=== PATIENT | female | born 1975 | race African-American/Black ===

== ENCOUNTER 2018-01-21 10:36 | Emergency (ER) | payer SELFPAY ==
[~2018-01-21] VITALS: Ht 162.6 cm; Wt 108.9 kg
[2018-01-21 10:48] VITALS: BP 164/85
[2018-01-21] MEDS ORDERED: IBUPROFEN 600 MG TABLET. PO ONE (11:15)
[2018-01-21] MEDS ORDERED: ORPHENADRINE CITRATE 60 MG/2 ML VIAL. IM ONE (11:15)
[2018-01-21] MEDS ORDERED: ORPH100T PO (11:21)
--- NOTE | 2018-01-21 11:21 | PHYS DOC ---
Past Medical History Past Medical History: Anxiety, Asthma, Bipolar, CHF, Depression, Diabetes-Type II, GERD, High Cholesterol, Hypertension, Schizophrenia Additional Past Medical Histor: SLEEP APNEA Past Surgical History: Cholecystectomy, , Hysterectomy Additional Past Surgical Histo: HERNIA REPAIR Alcohol Use: None Drug Use: None Adult General Chief Complaint Chief Complaint: BACK PAIN OR INJURY HPI HPI 42-year-old female presents to ER via POV with complaints of slipping and falling on Thursday and having lower back pain since the fall. Patient denies striking her head or having any head or neck pain. Patient states she took Tylenol and ibuprofen last night but has not taken any medications today. Pt denies any incontinence of bowel or bladder, swelling in extremities, or difficulty walking. She denies any numbness or tingling. Review of Systems Review of Systems Constitutional: Denies fever or chills [] Eyes: Denies change in visual acuity, redness, or eye pain [] HENT: Denies nasal congestion or sore throat [] Respiratory: Denies cough or shortness of breath [] Cardiovascular: No additional information not addressed in HPI [] GI: Denies abdominal pain, nausea, vomiting, bloody stools or diarrhea [] : Denies dysuria or hematuria [] Musculoskeletal: Denies back pain or joint pain [] Integument: Denies rash or skin lesions [] Neurologic: Denies headache, focal weakness or sensory changes [] Endocrine: Denies polyuria or polydipsia [] All other systems were reviewed and found to be within normal limits, except as documented in this note. Current Medications Current Medications Current Medications Medications (Trade) Dose Ordered Sig/[facility] Start Time Stop Time Status Last Admin Dose Admin Ibuprofen (Motrin) 600 mg 1X ONCE 01/21/18 11:15 01/21/18 11:16 UNV Orphenadrine Citrate (Norflex) 60 mg 1X ONCE 01/21/18 11:15 01/21/18 11:16 UNV Physical Exam Physical Exam Constitutional: Well developed, well nourished, no acute distress, non-toxic appearance. [] HENT: Normocephalic, atraumatic, bilateral external ears normal, oropharynx moist, no oral exudates, nose normal. [] Eyes: PERRLA, EOMI, conjunctiva normal, no discharge. [] Neck: Normal range of motion, no tenderness, supple, no stridor. [] Cardiovascular:Heart rate regular rhythm, no murmur [] Lungs & Thorax: Bilateral breath sounds clear to auscultation [] Abdomen: Bowel sounds normal, soft, no tenderness, no masses, no pulsatile masses. [] Skin: Warm, dry, no erythema, no rash. [] Back: No tenderness, no CVA tenderness. [] Extremities: No tenderness, no cyanosis, no clubbing, ROM intact, no edema. [] Neurologic: Alert and oriented X 3, normal motor function, normal sensory function, no focal deficits noted. [] Psychologic: Affect normal, judgement normal, mood normal. [] Current Patient Data Vital Signs Vital Signs Date Time Temp Pulse Resp B/P (MAP) Pulse Ox O2 Delivery O2 Flow Rate FiO2 01/21/18 10:48 98.1 85 20 164/85 (111) 95 Room Air 98.1 EKG EKG [] Radiology/Procedures Radiology/Procedures [] Course & Med Decision Making Course & Med Decision Making [] Dragon Disclaimer Dragon Disclaimer This electronic medical record was generated, in whole or in part, using a voice recognition dictation system. Departure Departure Impression: Primary Impression: Lower back injury Additional Impression: Fall Disposition: 01 HOME, SELF-CARE Condition: STABLE Referrals: GHAZALA TUCKER NP (PCP) FRANCISCO BYRD II, MD orthopedic doctor Patient Instructions: Back Pain, Adult, Fall Prevention and Home Safety, Muscle Strain Additional Instructions: You can continue over the counter ibuprofen and/or tylenol as directed on container as needed for pain. Ice/heat compress to affected area every 3-4 hours for 20-30 minutes at a time avoid direct contact of ice with skin. Over the counter sports cream to affected area as directed on container. If symptoms persist follow-up with orthopedic doctor for re-evaluation and further care. Scripts Orphenadrine Citrate (ORPHENADRINE CITRATE) 100 Mg Tablet.er 1 TAB PO BID PRN for PAIN, #10 TAB 0 Refills No driving or drinking alcohol while on this medication Prov: TANISHA LACEY Jeffery CARSON 01/21/18 Problem Qualifiers SPENCER LACEYMechelle Gil APRN Jan 21, 2018 11:21
== END 2018-01-21 11:38 | disposition home or self-care (01) ==
LOC: ER 10:36
DX: S39.82XA Other specified injuries of lower back, initial encounter (principal); F41.9 Anxiety disorder, unspecified; F31.9 Bipolar disorder, unspecified; F20.9 Schizophrenia, unspecified; J45.909 Unspecified asthma, uncomplicated; E11.9 Type 2 diabetes mellitus without complications; K21.9 Gastro-esophageal reflux disease without esophagitis; E78.00 Pure hypercholesterolemia, unspecified; I10 Essential (primary) hypertension; G47.30 Sleep apnea, unspecified; Z90.49 Acquired absence of other specified parts of digestive tract; Z90.710 Acquired absence of both cervix and uterus; Z98.890 Other specified postprocedural states; W01.0XXA Fall on same level from slipping, tripping and stumbling without subsequent striking against object, initial encounter; Y93.89 Activity, other specified; Y92.89 Other specified places as the place of occurrence of the external cause; Y99.8 Other external cause status
CPT/HCPCS: 96372; 99283; J2360

== ENCOUNTER 2019-11-14 13:44 | Emergency (ER) | payer SELFPAY ==
[~2019-11-14] VITALS: Ht 160 cm; Wt 109.5 kg
[~2019-11-14 13:44] MED LIST: ORPH100T PO
[2019-11-14 14:17] VITALS: BP 183/93
[2019-11-14] MEDS ORDERED: guaiFENesin/CODEINE 100mg/10mg 5 ML LIQUID PO STA (14:56)
[2019-11-14] MEDS ORDERED: IPRATRPIUM/ALBUTEROL 0.5/2.5MG 3 ML NEBU. NEB ONE (15:00)
[2019-11-14] MEDS ORDERED: predniSONE 20 MG TABLET PO ONE (15:00)
[2019-11-14] MEDS ORDERED: BENZ100C PO (15:53)
[2019-11-14] MEDS ORDERED: PRED50TA PO (15:53)
[2019-11-14] MEDS ORDERED: ALBU2.5V8 IH (15:53)
--- NOTE | 2019-11-14 15:53 | PHYS DOC ---
Past Medical History Past Medical History: Anxiety, Asthma, Bipolar, CHF, Depression, Diabetes-Type II, GERD, High Cholesterol, Hypertension, Schizophrenia Additional Past Medical Histor: SLEEP APNEA Past Surgical History: Cholecystectomy, , Hysterectomy Additional Past Surgical Histo: HERNIA REPAIR Smoking Status: Never Smoker Alcohol Use: None Drug Use: None General Adult EDM: Chief Complaint: ASTHMA HPI: HPI: Patient is a 44 year old with history of asthma presenting today complaining of shortness of breath, wheezing and cough since yesterday due to her asthma. Patient states she has been using her inhaler with minimal to no relief. Denies any fever. Denies any concerns for COVID19. Review of Systems: Review of Systems: Constitutional: Denies fever or chills. [] Eyes: Denies change in visual acuity. [] HENT: Denies nasal congestion or sore throat. [] Respiratory: Reports cough, wheezing, shortness of breath Cardiovascular: Denies chest pain or edema. [] GI: Denies abdominal pain, nausea, vomiting, bloody stools or diarrhea. [] : Denies dysuria. [] Musculoskeletal: Denies back pain or joint pain. [] Integument: Denies rash. [] Neurologic: Denies headache, focal weakness or sensory changes. [] Psychiatric: Denies depression or anxiety. [] Heart Score: Risk Factors: Risk Factors: DM, Current or recent (<one month) smoker, HTN, HLP, family history of CAD, obesity. Risk Scores: Score 0 - 3: 2.5% MACE over next 6 weeks - Discharge Home Score 4 - 6: 20.3% MACE over next 6 weeks - Admit for Clinical Observation Score 7 - 10: 72.7% MACE over next 6 weeks - Early Invasive Strategies Current Medications: Current Medications Medications (Trade) Dose Ordered Sig/Pedro Start Time Stop Time Status Last Admin Dose Admin Albuterol/ Ipratropium (Duoneb) 3 ml 1X ONCE 11/14/19 15:00 11/14/19 15:01 DC 11/14/19 15:13 3 ML Guaifenesin/ Codeine Phosphate (Robitussin Ac) 5 ml 1X STAT 11/14/19 14:56 11/14/19 15:00 DC 11/14/19 15:10 5 ML Prednisone (Prednisone) 60 mg 1X ONCE 11/14/19 15:00 11/14/19 15:01 DC 11/14/19 15:05 60 MG Allergies: Allergies: Allergies Coded Allergies Type Severity Reaction Last Updated Verified Penicillins Allergy Severe HIVES 01/21/18 Yes Physical Exam: PE: Constitutional: Well developed, well nourished, no acute distress, non-toxic appearance. [] HENT: Normocephalic, atraumatic, bilateral external ears normal, oropharynx moist, no oral exudates, nose normal. [] Eyes: PERRLA, EOMI, conjunctiva normal, no discharge. [] Neck: Normal range of motion, no tenderness, supple, no stridor. [] Cardiovascular:Heart rate regular rhythm, no murmur [] Lungs & Thorax: Tight chest, diminished lung sounds. Abdomen: Bowel sounds normal, soft, no tenderness, no masses, no pulsatile masses. [] Skin: Warm, dry, no erythema, no rash. [] Back: No tenderness, no CVA tenderness. [] Extremities: No tenderness, no cyanosis, no clubbing, ROM intact, no edema. [] Neurologic: Alert and oriented X 3, normal motor function, normal sensory function, no focal deficits noted. [] Psychologic: Affect normal, judgement normal, mood normal. [] Current Patient Data: Vital Signs: Vital Signs Date Time Temp Pulse Resp B/P (MAP) Pulse Ox O2 Delivery O2 Flow Rate FiO2 11/14/19 15:13 96 Room Air 11/14/19 14:17 98.3 114 22 183/93 (123) 98.3 EKG: EKG: [] Radiology/Procedures: Radiology/Procedures: [] Course & Med Decision Making: Course & Med Decision Making Pertinent Labs and Imaging studies reviewed. (See chart for details) This is a 34-year-old female patient presenting to the ED today with asthma symptoms. O2 sats 93% on room air on arrival. Chest tight. Given a DuoNeb treatment, prednisone. Feeling better. Lungs have improved. Discharged with prednisone, butyryl inhaler and Tessalon Perles. Follow-up with PCP in the course of this week. O2 sats 96% on room air after breathing treatment. Dragon Disclaimer: Dragsangita Disclaimer: This electronic medical record was generated, in whole or in part, using a voice recognition dictation system. Departure Departure Impression: Primary Impression: Asthma exacerbation Qualified Codes: J45.21 - Mild intermittent asthma with (acute) exacerbation Disposition: HOME, SELF-CARE Condition: STABLE Referrals: NO PCP (PCP) follow up with your doctor in 1-2 weeks Patient Instructions: Asthma, Adult, [id number] Additional Instructions: Please take the prescribed medications for your asthma as ordered. Follow-up with your own doctor in 1 to 2 weeks. Scripts Prednisone (PREDNISONE) 50 Mg Tablet 1 TAB PO DAILY, #5 TAB Prov: KARRI GURROLA APRN 11/14/19 Benzonatate (TESSALON PERLE) 100 Mg Capsule 1 CAP PO TID, #30 CAP Prov: KARRI GURROLA APRN 11/14/19 Albuterol Sulfate (PROAIR HFA INHALER) 8.5 Gm Hfa.aer.ad 2 PUFF IH PRN Q4-6HRS PRN for wheezing for 21 Days, #1 INHALER 0 Refills Prov: KARRI GURROLA APRN 11/14/19 Justicifation of Admission Dx: Justifications for Admission: Justification of Admission Dx: N/A KARRI GURROLA APRN Nov 14, 2019 15:53
== END 2019-11-14 16:02 | disposition home or self-care (01) ==
LOC: ER 13:44
DX: J45.21 Mild intermittent asthma with (acute) exacerbation (principal); F41.9 Anxiety disorder, unspecified; I11.0 Hypertensive heart disease with heart failure; I50.9 Heart failure, unspecified; E11.9 Type 2 diabetes mellitus without complications; K21.9 Gastro-esophageal reflux disease without esophagitis; E78.00 Pure hypercholesterolemia, unspecified; F20.9 Schizophrenia, unspecified; F31.9 Bipolar disorder, unspecified; Z88.0 Allergy status to penicillin
CPT/HCPCS: 94640; 99283; J7512

== ENCOUNTER 2021-07-09 18:42 | Emergency (ER) | payer SELFPAY ==
[~2021-07-09] VITALS: Ht 162.6 cm; Wt 119.0 kg
[~2021-07-09 18:42] MED LIST changes: +ALBU2.5V8 IH; +BENZ100C PO; +PRED50TA PO
--- NOTE | 2021-07-09 18:58 | RAD ---
Exam: CT head INDICATION: Left-sided weakness TECHNIQUE: Sequential axial images through the head were obtained without the administration of IV co ntrast. Exposure: One or more of the following in the visualized dose reduction techniques were utilized for this examination: 1. Automated exposure control 2. Adjustment of the MA and/or KV according to patient size 3. Use of iterative of reconstructive technique Comparisons: None FINDINGS: No focal parenchymal lesion or hemorrhage is identified. There is no midline shift or sulcal effaceme nt. Mild patchy hypodensity in the periventricular white matter. No acute vascular territory infarction i s identified. Marlow-white distinction is preserved. The ventricular system is within normal limits without compression hydrocephalus. The basal cisterns are well maintained. The visualized portions of the paranasal sinuses and mastoid air cells are well-pneumatized. No acute fractures. IMPRESSION: Mild small vessel schema change, technically age indeterminate without recent prior imaging. FOR INTERNAL CODING PURPOSES Critical result: Findings discussed with ER at 07/09/2021 6:55 PM. RESULT CODE: (C) Electronically signed by: Zina Florian MD (07/09/2021 6:56 PM) [facility]
--- NOTE | 2021-07-09 19:14 | PHYS DOC ---
Past Medical History Past Medical History: Anxiety, Asthma, Bipolar, CHF, Depression, Diabetes-Type II, GERD, High Cholesterol, Hypertension, Schizophrenia Additional Past Medical Histor: SLEEP APNEA Past Surgical History: Cholecystectomy, , Hysterectomy Additional Past Surgical Histo: HERNIA REPAIR Smoking Status: Current Every Day Smoker Alcohol Use: None Drug Use: None General Adult EDM: Chief Complaint: NEURO SYMPTOMS/DEFICITS HPI: HPI: Patient with history of congestive heart failure brought in by EMS due to difficulty breathing on arrival however on arrival they also noted her to have complete left-sided paralysis and a gaze deficit. Therefore on arrival code stroke was called. Patient states she she does not have any pain headache nausea or vomiting. Difficult to get further history at this time. Review of Systems: Review of Systems: Cannot perform due to acuity of condition Heart Score: C/O Chest Pain: No Risk Factors: Risk Factors: DM, Current or recent (<one month) smoker, HTN, HLP, family history of CAD, obesity. Risk Scores: Score 0 - 3: 2.5% MACE over next 6 weeks - Discharge Home Score 4 - 6: 20.3% MACE over next 6 weeks - Admit for Clinical Observation Score 7 - 10: 72.7% MACE over next 6 weeks - Early Invasive Strategies Current Medications: Current Medications Medications (Trade) Dose Ordered Sig/Pedro Start Time Stop Time Status Last Admin Dose Admin Alteplase, Recombinant 81 ml @ 81 mls/hr 1X ONCE 07/09/21 19:15 07/09/21 20:14 UNV Info (CONTRAST GIVEN -- Rx MONITORING) 1 each PRN DAILY PRN 07/09/21 19:15 07/11/21 19:14 Iohexol (Omnipaque 350 Mg/ml) 75 ml 1X ONCE 07/09/21 19:15 07/09/21 19:16 Labetalol HCl (Normodyne Iv Push) 10 mg PRN Q10MIN PRN 07/09/21 19:15 UNV Nicardipine HCl 50 mg/Sodium Chloride 250 ml @ 25 mls/hr CONT PRN PRN 07/09/21 19:15 UNV Sodium Chloride 100 ml @ 100 mls/hr 1X ONCE 07/09/21 19:15 07/09/21 20:14 UNV Allergies: Allergies: Allergies Coded Allergies Type Severity Reaction Last Updated Verified Penicillins Allergy Severe HIVES 01/21/18 Yes Physical Exam: PE: Constitutional: Well developed, well nourished, no acute distress, non-toxic appearance. [] HENT: Normocephalic, atraumatic, bilateral external ears normal, oropharynx moist, no oral exudates, nose normal. [] Eyes: PERRLA, EOMI, conjunctiva normal, no discharge. [] Neck: Normal range of motion, no tenderness, supple, no stridor. [] Cardiovascular: Tachycardia Lungs & Thorax: Bilateral breath sounds clear to auscultation [] Abdomen: Bowel sounds normal, soft, no tenderness, no masses, no pulsatile masses. [] Skin: Warm, dry, no erythema, no rash. [] Back: No tenderness, no CVA tenderness. [] Extremities: No tenderness, no cyanosis, no clubbing, ROM intact, no edema. [] Neurologic: Please see NIH stroke scale, and the brief version she has complete left-sided upper and lower extremity paralysis with neglect, NIH stroke scale of 16 EKG: EKG: [] Radiology/Procedures: Radiology/Procedures: [] Course & Med Decision Making: Course & Med Decision Making Pertinent Labs and Imaging studies reviewed. (See chart for details) 7:13 PM arrival immediately saw the patient and stroke code stroke was called. Patient was taken to CTA and has not returned. I received a call from radiology stating no obvious bleeding. Stroke assessment done by myself shows a stroke scale of 16. tPA is ordered we are only waiting on the platelets to result. While we wait for the mother to arrive given her large deficit I will quickly take for CTA. 7: 35 PM patient's mother arrives and states that she has a history of significant congestive heart failure and hypertension. No history of strokes. She thinks that her child may be on blood thinners. Therefore we call a family member over the phone and I go through all the medications with him which do not reveal any blood thinners. He went through her bags of medications and did not find any. She is on medications for depression and blood pressure. 8:00 PM I received a call from radiologist stating that there is a right large segment MCA occlusion which is consistent with the patient's symptoms. Raul is excepted the patient transfer for neuro intervention. Patient's vital signs will be monitored and she will be transferred as soon as possible. Critical care time 1 hour which was spent reassessing the patient, at bedside, talking with family Guerrero Disclaimer: Guerrero Disclaimer: This electronic medical record was generated, in whole or in part, using a voice recognition dictation system. 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
[2021-07-09] MEDS ORDERED: IV NORMAL SALINE 100ML 100 ML IV ONE (19:15)
[2021-07-09] MEDS ORDERED: CONTRAST GIVEN. MC PRN (19:15)
[2021-07-09] MEDS ORDERED: ALTEPLASE 81 MG IV ONE (19:15)
[2021-07-09] MEDS ORDERED: ALTEPLASE 9 MG IV ONE (19:15)
[2021-07-09] MEDS ORDERED: LABETALOL 20 MG/4 ML DISP.SYRIN. IVP PRN (19:15)
[2021-07-09] MEDS ORDERED: IOHEXOL 350 MG/ML 100 ML VIAL. IV ONE (19:15)
[2021-07-09 19:24] LABS: HEMATOCRIT 36.2 % (36.0-47.0); HEMOGLOBIN 12.1 g/dL (12.0-15.5); RED BLOOD COUNT 4.1 x10^6/uL (3.50-5.40); RED CELL DISTRIBUTION WIDTH 14.2 % (11.5-14.5); WHITE BLOOD COUNT 10.3 x10^3/uL (4.0-11.0)
--- NOTE | 2021-07-09 19:30 | RAD ---
XR CHEST 1V Clinical History: Reason: AMS, stroke / Spl. Instructions: / History: Technique: AP view of the chest was obtained at 07/09/2021 7:13 PM. Comparison: March 19, 2011. Findings: The heart is normal in size. The pulmonary vasculature is normal. The study is somewhat underpenetrat ed secondary to large body habitus. Impression: No evidence of an acute cardiopulmonary process. Electronically signed by: Drake Rosas III, MD (07/09/2021 7:28 PM) [facility]
[2021-07-09 19:33] LABS: PROTHROMBIN TIME PATIENT 13.8 SEC (11.7-14.0)
[2021-07-09 19:34] LABS: CALCIUM 8.9 mg/dL (8.5-10.1); CREATININE 1.6 mg/dL (0.6-1.0); GFR 42.4; POTASSIUM 3.7 mmol/L (3.5-5.1)
[2021-07-09 19:37] LABS: PREG TEST PT QUAL NEGATIVE (NEG)
[2021-07-09 19:40] LABS: ALBUMIN 3.4 g/dL (3.4-5.0); ALBUMIN/GLOBULIN RATIO 0.8 (1.0-1.7); TOTAL BILIRUBIN 0.4 mg/dL (0.2-1.0); TOTAL PROTEIN 7.9 g/dL (6.4-8.2)
--- NOTE | 2021-07-09 19:54 | RAD ---
Exam: CTA head and neck INDICATION: Left-sided weakness, TECHNIQUE: Sequential axial images through the head and neck obtained following the administration of 75 mL of Isovue-370 IV contrast. Sagittal and coronal reformatted images were reconstructed from the axial data and reviewed. 3-D reformatted images were reconstructed from the axial data and reviewed. Exposure: One or more of the following in the visualized dose reduction techniques were utilized for this examination: 1. Automated exposure control 2. Adjustment of the MA and/or KV according to patient size 3. Use of iterative of reconstructive technique Comparisons: CT head without contrast same day FINDINGS: CTA NECK: Visualized portions of thoracic aorta are unremarkable. Two-vessel aortic arch configuration common o rigin of the brachycephalic and left common carotid arteries. Right common carotid artery is patent without evidence of stenosis, occlusion or aneurysm. Cervical s egment of the right internal carotid artery is patent without evidence stenosis, occlusion or aneurys m. Left common carotid artery is patent without evidence of stenosis, occlusion or aneurysm. Cervical se gment of the left internal carotid artery is patent without evidence of stenosis, occlusion or aneury sm. Right vertebral artery is patent to the basilar confluence without evidence of stenosis, occlusion or aneurysm. Left vertebral artery is patent to basilar confluence without evidence of stenosis, occlusion or aneu rysm. Visualized paraspinal soft tissues are unremarkable. CTA HEAD: Intracranial segments of the right internal carotid artery are patent without evidence of stenosis, o cclusion or aneurysm. There is abrupt cut off of the right MCA at the distal M1 segment. MARIELLA is paten t. Intrarenal segments of the left internal carotid artery are patent without evidence of stenosis, occl usion or aneurysm. Left MCA is patent. Left MARIELLA is patent. Basilar artery is patent without evidence of stenosis, occlusion or aneurysm. swatch maker are patent bilater ally. Visual is portions of the dural venous sinuses are patent. IMPRESSION: Abrupt cut off of the distal M1 segment of the right MCA. FOR INTERNAL CODING PURPOSES Critical result: Findings discussed with SOURAV RM MD at 07/09/2021 7:45 PM. RESULT CODE: (C) Electronically signed by: Zina Florian MD (07/09/2021 7:52 PM) [facility]
[2021-07-09 20:09] VITALS: BP 175/83
[2021-07-09 20:20] LABS: BACTERIA,URINE MANY /HPF (0-FEW); RBC,URINE OCC /HPF (0-2); WBC,URINE 20-40 /HPF (0-4)
[2021-07-09 20:27] LABS: BARBITURATES NEG (NEG); BENZODIAZEPINES NEG (NEG); CANNABINOIDS NEG (NEG); COCAINE POS (NEG); METHADONE NEG (NEG); OPIATES NEG (NEG); PHENCYCLIDINE NEG (NEG)
[2021-07-09 20:34] LABS: AMPHETAMINE/METHAMPHETAMINE POS (NEG)
--- NOTE | 2021-07-10 07:21 | EKG ---
[facility] [address] [place] [address] Test Date: 2021-07-09 Test Time: 19:06:24 Pat Name: FARIBA MARROQUIN Department: Room: Gender: F Hall Porter: : 1975 Requested By: SOURAV RM Order Number: [id number] Reading MD: Moi Mccrary Measurements Intervals Julian Rate: 111 P: 59 MT: 148 QRS: 41 QRSD: 82 T: 24 QT: 352 QTc: 482 Interpretive Statements SINUS TACHYCARDIA ATRIAL PREMATURE COMPLEX(ES) Electronically Signed On 07-12-2021 10:26:43 CDT by Moi Mccrary
== END 2021-07-09 20:22 | disposition short-term general hospital (02) ==
LOC: ER 18:42
DX: I63.411 Cerebral infarction due to embolism of right middle cerebral artery (principal); I11.0 Hypertensive heart disease with heart failure; I50.9 Heart failure, unspecified; F31.9 Bipolar disorder, unspecified; J45.909 Unspecified asthma, uncomplicated; K21.9 Gastro-esophageal reflux disease without esophagitis; E78.00 Pure hypercholesterolemia, unspecified; E11.9 Type 2 diabetes mellitus without complications; F20.9 Schizophrenia, unspecified; F17.200 Nicotine dependence, unspecified, uncomplicated; Z88.0 Allergy status to penicillin
CPT/HCPCS: 36415; 37195; 70450; 70496; 70498; 71045; 80053; 80307; 81001; 84484; 84703; 85027; 85610; 85730; 86850; 86900; 86901; 87077; 87086; 87186; 93005; 96360; 99291; G0480; J2997; Q9967